=== PATIENT | male | born 1990 | race Caucasian/White ===

== ENCOUNTER 2019-04-25 21:49 | Emergency (ER) | payer MEDICAID, OTHER ==
[~2019-04-25] VITALS: Ht 180.3 cm; Wt 62.6 kg
[2019-04-25 22:20] VITALS: BP 127/71
--- NOTE | 2019-04-25 22:45 | NUR ---
DAVID HOBSON A PAC AT THE BED SIDE
== END 2019-04-25 22:59 | disposition home or self-care (01) ==
LOC: ER 21:55
DX: F32.9 Major depressive disorder, single episode, unspecified (principal); F42.8 Other obsessive-compulsive disorder; Z76.0 Encounter for issue of repeat prescription; Q18.1 Preauricular sinus and cyst

== ENCOUNTER 2019-05-16 14:58 | Emergency (ER) | payer MEDICAID ==
[~2019-05-16] VITALS: Ht 180.3 cm; Wt 63.5 kg
[2019-05-16 15:40] VITALS: BP 128/73
== END 2019-05-16 16:22 | disposition home or self-care (01) ==
LOC: ER 14:58
DX: E10.9 Type 1 diabetes mellitus without complications (principal); H60.11 Cellulitis of right external ear; Z76.0 Encounter for issue of repeat prescription; F32.9 Major depressive disorder, single episode, unspecified

== ENCOUNTER 2019-05-26 22:37 | Emergency (ER) | payer MEDICAID ==
[~2019-05-26] VITALS: Ht 180.3 cm; Wt 65.3 kg
--- NOTE | 2019-05-26 22:45 | NUR ---
PT CAME INTO THE ED C/O HIGH BLOOD SUGAR 400'S X4 DAYS, LAST BS-145 @ 2044. CHILLS. "I FEEL LIKE I HAVE DKA". LAST BS CHECK 274, MADE AWARE. PT HAS NO OTHER COMPLAINTS. -DIZZINESS, -HEADACHE. PT AAOX4, VSS, BREATHING EVEN AND UNLABORED ON ROOM AIR. PT CONNECTED TO THE MONITOR
[2019-05-26] MEDS ORDERED: IV NS 0.9% 1,000 ML BAG IV ONE (23:00)
[2019-05-26 23:26] LABS: BASOPHILS # (AUTO) 0.1 /CMM (0.0-0.2); BASOPHILS % (AUTO) 0.5 % (0.0-2.0); EOSINOPHILS % (AUTO) 0.4 % (0.0-6.0); HEMATOCRIT 44 % (39-51); HEMOGLOBIN 14.6 g/dL (13.5-17.5); LYMPHOCYTES % (AUTO) 6.7 % (20.0-44.0); MEAN CORPUSCULAR HGB CONC 33 g/dl (31.0-36.0); MEAN CORPUSCULAR VOLUME 90 fL (80-96); MONOCYTES # (AUTO) 0.7 /CMM (0.1-1.30); MONOCYTES % (AUTO) 4.8 % (2.0-12.0); NEUTROPHILS # (AUTO) 12.9 /CMM (1.8-8.9); NEUTROPHILS % (AUTO) 87.6 % (43.0-81.0); PLATELET COUNT (AUTO) 221 /CMM (150-450); RED BLOOD CELL COUNT(AUTO) 4.89 MIL/uL (4.5-6.0); WHITE BLOOD COUNT (AUTO) 14.8 K/uL (4.3-11.0)
[2019-05-26 23:35] LABS: CALCIUM, SERUM 9.1 mg/dL (8.5-10.1); POTASSIUM 4.4 mmol/L (3.5-5.1)
[2019-05-26 23:48] LABS: APPEARANCE,URINE Clear (CLEAR); BILIRUBIN,URINE Negative (NEGATIVE); BLOOD, URINE Negative Ery/uL (NEGATIVE); COLOR,URINE Yellow (YELLOW); KETONES,URINE Negative (NEGATIVE); LEUKOCYTE ESTERASE ,URINE Negative (NEGATIVE); NITRITE, URINE Negative (NEGATIVE); PROTEIN,URINE Negative (NEGATIVE); UGLUCOSE 500 MG/DL mg/dL (NEGATIVE); UROBILINOGEN,URINE 0.2 EU/dL (0.2)
--- NOTE | 2019-05-27 00:12 | NUR ---
PT CLEARED FOR DISCHARGE PER DR. MILTON. PT RECEIVED DISCHARGE INSTRCTIONS. PT VERBALIZED UNDERSTANDING. IV REMOVED, IV CATHETER INTACT. PRESSURE GAUZE APPLIED. NO BLEEDING NOTED. PT AMBULATORY WITH STEADY GAIT.
[2019-05-27 00:15] VITALS: BP 118/58
== END 2019-05-27 00:16 | disposition home or self-care (01) ==
LOC: ER 22:40
DX: E11.65 Type 2 diabetes mellitus with hyperglycemia (principal); F32.9 Major depressive disorder, single episode, unspecified
CPT/HCPCS: 36415; 80048; 81001; 82010; 82962; 85025; 96360; 99283; J7030; 81000-TC

== ENCOUNTER 2019-06-02 02:36 | Emergency (ER) | payer MEDICAID ==
[~2019-06-02] VITALS: Ht 180.3 cm; Wt 63.5 kg
--- NOTE | 2019-06-02 03:13 | NUR ---
IV STARTED IN LAC AND BLOOD WAS DRAWN. PARTS CONSULTANT IS AT THE BEDSIDE TO COLLECT SAMPLES.
[2019-06-02] MEDS ORDERED: INSULIN REGULAR, HUMAN 100 UNIT/ML 10 ML VIAL ONE (03:17)
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
[2019-06-02 03:27] LABS: APPEARANCE,URINE CLEAR (CLEAR); BILIRUBIN,URINE NEGATIVE (NEGATIVE); BLOOD, URINE NEGATIVE Ery/uL (NEGATIVE); COLOR,URINE YELLOW (YELLOW); KETONES,URINE NEGATIVE (NEGATIVE); LEUKOCYTE ESTERASE ,URINE NEGATIVE (NEGATIVE); NITRITE, URINE NEGATIVE (NEGATIVE); PH,URINE 7.5 (5.0-8.0); PROTEIN,URINE NEGATIVE (NEGATIVE); UGLUCOSE >=1000 mg/dL (NEGATIVE); UROBILINOGEN,URINE 0.2 EU/dL (0.2)
[2019-06-02 03:27] LABS: BASOPHILS % (AUTO) 0.4 % (0.0-2.0); EOSINOPHILS % (AUTO) 0.7 % (0.0-6.0); HEMATOCRIT 43 % (39-51); HEMOGLOBIN 14.6 g/dL (13.5-17.5); LYMPHOCYTES # (AUTO) 1.7 /CMM (0.8-4.8); MEAN CORPUSCULAR HGB CONC 34 g/dl (31.0-36.0); MEAN CORPUSCULAR VOLUME 89 fL (80-96); MONOCYTES # (AUTO) 0.5 /CMM (0.1-1.30); MONOCYTES % (AUTO) 5.1 % (2.0-12.0); NEUTROPHILS # (AUTO) 7.1 /CMM (1.8-8.9); NEUTROPHILS % (AUTO) 75.8 % (43.0-81.0); PLATELET COUNT (AUTO) 195 /CMM (150-450); RED BLOOD CELL COUNT(AUTO) 4.79 MIL/uL (4.5-6.0); WHITE BLOOD COUNT (AUTO) 9.3 K/uL (4.3-11.0)
[2019-06-02] MEDS ORDERED: IV NS 0.9% 1,000 ML BAG IV ONE (03:30)
[2019-06-02] MEDS ORDERED: INSULIN REGULAR, HUMAN 100 UNIT/ML 3 ML VIAL IV ONE (03:30)
[2019-06-02 03:38] LABS: CALCIUM, SERUM 8.9 mg/dL (8.5-10.1)
[2019-06-02 04:31] VITALS: BP 112/68
--- NOTE | 2019-06-02 04:32 | NUR ---
Patient discharged to home in stable condition. Written and verbal after care instructions given. Patient verbalizes understanding of instruction and RX. IV removed. Catheter intact and site benign. Pressure and 4x4 applied to site. No bleeding noted. pt ambulated out with a steady gait.
== END 2019-06-02 04:32 | disposition home or self-care (01) ==
LOC: ER 02:36
DX: E10.65 Type 1 diabetes mellitus with hyperglycemia (principal); F32.9 Major depressive disorder, single episode, unspecified; F17.200 Nicotine dependence, unspecified, uncomplicated
CPT/HCPCS: 36415; 80048; 81001; 82010; 82962 ×2; 85025; 96374; 99283; J1815 ×2; J7030; 81000-TC